=== PATIENT | female | born 1970 | race Caucasian/White ===

== ENCOUNTER 2017-06-05 15:42 | Emergency (ER) | payer BC ==
[2017-06-05 16:12] VITALS: BP 137/77; PULSE 93; TEMP 98; BMI 35.4
[2017-06-05] MEDS ORDERED: DIPHTH,PERTUSS(ACELL),TET 0.5 ML DISP.SYRIN IM ONE (17:17)
--- NOTE | 2017-06-05 17:19 | PDOC ---
History of Present Illness - General History Source: Patient (Walks in with complaints of right hand pain, s/p laceration.) Exam Limitations: No Limitations - History of Present Illness Timing/Duration: reports: this afternoon Severity: Yes: moderate Location: reports: hands <VivianaOdin - Last Filed: 06/05/17 18:00> <ManuellylaLuis Angel Leonardo - Last Filed: 06/05/17 18:18> - General Chief Complaint: Laceration Stated Complaint: RT HAND LACERATION Time Seen by Provider: 06/05/17 16:01 Past History <VivianaOdin - Last Filed: 06/05/17 18:00> - Past Medical History COPD: No HTN: Yes - Suicide/Smoking/Psychosocial Hx Smoking History: Never smoked Have you smoked in the past 12 months: No Information on smoking cessation initiated: No Hx Alcohol Use: No Drug/Substance Use Hx: No Substance Use Type: None <Luis Angel Robledo - Last Filed: 06/05/17 18:18> - Past Medical History Allergies/Adverse Reactions: Allergies Allergy/AdvReac Type Severity Reaction Status Date / Time No Known Allergies Allergy Verified 06/05/17 16:12 Home Medications: Ambulatory Orders Crestor 06/05/17 Klor-Con 06/05/17 Lo Loestrin Fe 1-10 Tablet 06/05/17 Norvasc - 06/05/17 Prevacid 06/05/17 Sulfamethoxazole/Trimethoprim [Bactrim Ds -] 1 tab PO BID #14 tablet 06/05/17 Review of Systems - Review of Systems Musculoskeletal: Yes: Muscle Pain, Other (Right hand laceration. ) All Other Systems: Reviewed and Negative <VivianaOdin - Last Filed: 06/05/17 18:00> *Physical Exam - Vital Signs Last Vital Signs Temp Pulse Resp BP Pulse Ox 98 F 93 H 20 137/77 99 06/05/17 15:42 06/05/17 15:42 06/05/17 15:42 06/05/17 15:42 06/05/17 15:42 - Physical Exam HEENT: positive: Normal ENT Inspection, TMs Normal, Pharynx Normal Neck: positive: Supple Respiratory/Chest: positive: Lungs Clear, Normal Breath Sounds Cardiovascular: positive: Regular Rhythm, Regular Rate Gastrointestinal/Abdominal: positive: Normal Bowel Sounds, Soft Musculoskeletal: positive: Normal Inspection Extremity: positive: Other (Proximal 2.5 cm laceration longitude on dorsum of right hand. ) Neurologic: positive: carry in worker II-XII NML intact, Fully Oriented, Motor Strength 5/5 <Odin Michelle - Last Filed: 06/05/17 18:00> - Vital Signs Last Vital Signs Temp Pulse Resp BP Pulse Ox 98 F 93 H 20 137/77 99 06/05/17 15:42 06/05/17 15:42 06/05/17 15:42 06/05/17 15:42 06/05/17 15:42 <Luis Angel Robledo - Last Filed: 06/05/17 18:18> Procedures - Laceration/Wound Repair Right Proximal Dorsal Hand Wound Length: to 2.5 cm Wound Explored: clean, no foreign body present Wound's Depth, Shape: superficial Irrigated w/ Saline: Yes Anesthesia: 1% Lidocaine Suture Size/Type: 5:0 Number of Sutures: 5 Layer Closure: No Sterile Dressing Applied: Yes Splint Applied: No Sling Applied: No <Odin Michelle - Last Filed: 06/05/17 18:00> ED Treatment Course - RADIOLOGY Radiology Studies Ordered: Category Date Time Status HAND- RIGHT [RAD] Stat Radiology 06/05/17 16:12 Taken <Luis Angel Robledo - Last Filed: 06/05/17 18:18> *DC/Admit/Observation/Transfer - Attestations Scribe Attestion: 06/05/17 18:06 Documentation prepared by Odin Michelle, acting as medical staff services coordinator for Luis Angel Robledo MD/DO. <Odin Michelle - Last Filed: 06/05/17 18:00> - Discharge Dispostion Admit: No <Luis Angel Robledo - Last Filed: 06/05/17 18:18> Diagnosis at time of Disposition: Hand laceration Qualifiers: Encounter type: initial encounter Foreign body presence: without foreign body Laterality: right Qualified Code(s): S61.411A - Laceration without foreign body of right hand, initial encounter - Discharge Dispostion Disposition: HOME Condition at time of disposition: Improved - Prescriptions Prescriptions: Sulfamethoxazole/Trimethoprim [Bactrim Ds -] 1 tab PO BID #14 tablet - Referrals Referrals: Manuel Whatley MD [Staff Physician] - - Patient Instructions Printed Discharge Instructions: DI for Laceration Repair Additional Instructions: clean and dry wound check in 3-4 days sutures out in 12-14 days
[2017-06-05] MEDS ORDERED: SULFAMETHOXAZOLE/TRIMETHOPRIM 800MG/160MG D.S. TABLET PO ONE (18:02)
[2017-06-05] MEDS ORDERED: SULFAMETHOXAZOLE/TRIMETHOPRIM 800MG/160MG D.S. TABLET ONE (18:14)
== END 2017-06-05 18:29 | disposition home or self-care (01) ==
LOC: FER 15:42
PROC: 3E0234Z Introduction of Serum, Toxoid and Vaccine into Muscle, Percutaneous Approach (ICD-10-PCS; principal; 2017-06-05)
DX: S61.411A Laceration without foreign body of right hand, initial encounter (principal); X58.XXXA Exposure to other specified factors, initial encounter; Y93.89 Activity, other specified; Y92.9 Unspecified place or not applicable; M79.1 Myalgia
CPT/HCPCS: 73130-TC-RT; 90715; 99283-25

== ENCOUNTER 2017-06-19 08:46 | Emergency (ER) | payer BC ==
[2017-06-19 08:50] VITALS: BP 139/89; PULSE 77; TEMP 98; BMI 35.4
--- NOTE | 2017-06-19 09:40 | PDOC ---
Suture Removal/Wound Check HPI - History of Present Illness Chief Complaint: Suture/Staple Removal(Here) Stated Complaint: SUTURE REMOVAL Time Seen by Provider: 06/19/17 08:49 - Onset of Previous Treatment Comment:: 06/19/17 09:35 46 F presenting for suture removal. Pt initially cut dorsum of R hand 2 weeks ago. Had 5 stitches placed at the time. She returned to the ER 5 days ago to have sutures removed but was told that they were not ready to come out yet. Dermabond was applied over existing sutures, and pt was told to return today for removal. Pt denies any redness, swelling. Denies fevers. Reports only miminal pain at suture site. Past History - Past Medical History Allergies/Adverse Reactions: Allergies Allergy/AdvReac Type Severity Reaction Status Date / Time No Known Allergies Allergy Verified 06/19/17 08:50 Home Medications: Ambulatory Orders Crestor 06/05/17 Klor-Con 06/05/17 Lo Loestrin Fe 1-10 Tablet 06/05/17 Norvasc - 06/05/17 Prevacid 06/05/17 COPD: No HTN: Yes - Suicide/Smoking/Psychosocial Hx Smoking History: Never smoked Have you smoked in the past 12 months: No Information on smoking cessation initiated: No Hx Alcohol Use: No Drug/Substance Use Hx: No Substance Use Type: None Suture Removal/Wound Check PE - Physical Exam Comments: 06/19/17 09:39 "GENERAL: Awake, alert, and fully oriented, in no acute distress HEAD: No signs of trauma EYES: PERRLA, EOMI, sclera anicteric, conjunctiva clear ENT: Auricles normal inspection, hearing grossly normal, nares patent, oropharynx clear without exudates. Moist mucosa NECK: Nontender, no stepoffs, Normal ROM, supple, no lymphadenopathy, JVD, or masses LUNGS: Breath sounds equal, clear to auscultation bilaterally. No wheezes, and no crackles HEART: Regular rate and rhythm, normal S1 and S2, no murmurs, rubs or gallops ABDOMEN: Soft, nontender, normoactive bowel sounds. No guarding, no rebound. No masses EXTREMITIES: Normal range of motion, no edema. No clubbing or cyanosis. No cords, erythema, or tenderness NEUROLOGICAL: Cranial nerves II through XII intact. 5/5 strength and sensation in all extremities, Normal speech, normal gait SKIN: 2cm laceration on dorsum of R hand, well healed, no erythema/edema/ fluctuance, [address] " *Review of Systems - Review of Systems Comments:: 06/19/17 09:40 "GENERAL/CONSTITUTIONAL: No fever or chills. No weakness. HEAD, EYES, EARS, NOSE AND THROAT: No change in vision. No ear pain or discharge. No sore throat. CARDIOVASCULAR: No chest pain or shortness of breath. RESPIRATORY: No cough, wheezing, or hemoptysis. GASTROINTESTINAL: No nausea, vomiting, diarrhea or constipation. GENITOURINARY: No dysuria, frequency, or change in urination. MUSCULOSKELETAL: No joint or muscle swelling or pain. No neck or back pain. SKIN: No rash NEUROLOGIC: No headache, vertigo, loss of consciousness, or change in strength/ sensation. ENDOCRINE: No increased thirst. No abnormal weight change. HEMATOLOGIC/LYMPHATIC: No anemia, easy bleeding, or history of blood clots. ALLERGIC/IMMUNOLOGIC: No hives or skin allergy. " Medical Decision Making - Medical Decision Making 06/19/17 09:40 46 F with 5 sutures to R hand, wound well healed. - Sutures removed *DC/Admit/Observation/Transfer Diagnosis at time of Disposition: Visit for suture removal - Discharge Dispostion Disposition: HOME - Referrals - Patient Instructions Printed Discharge Instructions: DI for Suture Removal Additional Instructions: If the wound opens up, if you see any redness, swelling, drainage, or any other concerning symptoms, return to the ER. - Post Discharge Activity - Attestations Physician Attestion: 06/19/17 09:41 I, Dr. Santi Lara MD, attest that this document has been prepared under my direction and personally reviewed by me in its entirety. I further attest, that it accurately reflects all work, treatment, procedures and medical decision -making performed by me.
== END 2017-06-19 09:58 | disposition home or self-care (01) ==
LOC: FER 08:46
DX: Z48.02 Encounter for removal of sutures (principal)
CPT/HCPCS: 99281-25